=== PATIENT | female | born 1955 | race American Indian/Alaskan Native ===

== ENCOUNTER 2018-02-28 08:19 | Day surgery (SDC) | payer MEDICAID ==
[2018-02-23 13:11] VITALS: BMI 31.6
[2018-02-28] MEDS ORDERED: Bupivacaine 0.5% 50 ML IJ ONE ×2 (08:52→10:20)
[2018-02-28] MEDS ORDERED: Lidocaine 1% Inj (20ml) ONE ×2 (08:52→10:20)
[2018-02-28] MEDS ORDERED: Midazolam 2 MG/2 ML VIAL ONE ×2 (10:49→10:52)
[2018-02-28] MEDS ORDERED: Propofol 10 mg/ml Inj (20 ML) ONE (10:52)
--- NOTE | 2018-02-28 11:53 | PCM.SURG1 ---
Surgeon's Initial Post Op Note - Surgeon's Notes Surgeon: Dr. Car Delivery Person: Dr. Segura PGY3 Type of Anesthesia: IV Sedation, Local Pre-Operative Diagnosis: back lipoma Operative Findings: same Post-Operative Diagnosis: same Operation Performed: excision of lipoma Specimen/Specimens Removed: Lipoma Estimated Blood Loss: EBL {In ML}: 5 Drains Used: Sump Drain (RED RUBBER CATHETER DRAIN ) Post-Op Condition: Good Date of Surgery/Procedure: 02/28/18 Time of Surgery/Procedure: 10:45
[2018-02-28 12:34] VITALS: RESP 20; TEMP 98.6; O2SAT 99
[2018-02-28 14:01] VITALS: BP 132/70; PULSE 64
--- NOTE | 2018-03-04 15:54 | OP ---
PROCEDURE DATE: 02/28/2018 She is admitted and operated on 02/28/2018. SURGEON: Rafael Car MD FUNERAL CAR DRIVER: Cameron Segura DO, PGY-3. SCALLOPER: Grabiel Grimes MD ANESTHESIA: MAC-bupivacaine 0.5 - 21 mL. PREOPERATIVE DIAGNOSIS: Lipoma of the back - 6 cm. POSTOPERATIVE DIAGNOSIS: Lipoma of the back - 6 cm. PROCEDURE: Excision of a 6-cm lipoma with intermediate layered closure, 6 cm. OPERATIVE INDICATIONS: The patient is a 62-year-old . The patient has an extremely large 6-cm lipoma on her left shoulder posteriorly that is enlarging and causing great pain. The patient has requested this be removed at this point, but due to its large size and at the patient's request, she is going to have anesthesia sedation in addition to the local anesthesia. Risks, benefits, alternatives and their anticipated outcomes were fully discussed prior to signing the consent. OPERATIVE NOTE The patient is brought from the same-day holding area where the lesion was marked preoperatively. She undergoes time-out procedure, was identified by her wristband and is placed on the table in a right lateral position and the area is prepped with Hibiclens chlorhexidine preparation and the patient aseptically draped. 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 The lesion extends down to the fascia of the posterior chest wall and hemostasis is contained with the cautery scalpel when dissecting. The entire lesion was removed with multiple smaller segments that were thought to be additionally left and these were removed as well. The wound is now lavaged with normal saline solution and the they are aspirated demonstrating complete hemostatic control. The wound is now closed in layers using 3-0 subcutaneous approximation and the AutoSuture skin stapler for skin. The skin and fascia are infiltrated with bupivacaine for postoperative analgesia and a 10-[place] drain catheter is inserted into the incision and stapled to the 4x4 dressing over the incision and will be removed by the patient on the first postoperative day allowing drainage of any accumulating fluids. The patient is awakened, transported to the recovery room in a satisfactory condition. Sponge, instrument and suture count were verified as correct at the end of the procedure. Estimated blood loss during this procedure was less than 30 mL of blood. The surgical services tech was present throughout and was extremely helpful in the dissection and the exposure of this particular surgery. Rafael Car MD
== END 2018-02-28 13:50 | disposition home or self-care (01) ==
LOC: SDS 08:19
PROVIDERS: ATTEND Surgery
DX: D17.1 Benign lipomatous neoplasm of skin and subcutaneous tissue of trunk (principal); I10 Essential (primary) hypertension
CPT/HCPCS: 11406; 88304; J0690; J1885; J2250; J2405; J2704; J3010; J7120

== ENCOUNTER 2018-05-03 08:41 | Outpatient (CLI) | payer MEDICAID | END 2018-05-03 08:42 | disposition home or self-care (01) | LOC: CARDIO 08:41 ==